=== PATIENT | female | born 1985 | race Caucasian/White ===

== ENCOUNTER 2020-05-18 06:10 | Inpatient (IN) | payer OTHER ==
[~2020-05-18] VITALS: Ht 154.9 cm; Wt 250.0 kg
[~2020-05-18 06:10] MED LIST: AVALIDE 150/12.1 TAB PO; AVALIDE 300-121 EACH PO; DOSTINEX PO; HYDRALAZINE HCL25 MG PO; NABUMETONE500 MG PO; NORVASC5 MG PO; PERCOCET 5/3251 TAB PO; ULTRACET PO
== END 2020-05-20 14:19 | disposition home or self-care (01) | DRG 741 ==
LOC: CIR.AMB 06:10 → OB/GYN 17:45
PROVIDERS: ADMIT Specialist; ATTEND Specialist
PROC: 07BC4ZX Excision of Pelvis Lymphatic, Percutaneous Endoscopic Approach, Diagnostic (ICD-10-PCS; 2020-05-18)
PROC: 0UB74ZZ Excision of Bilateral Fallopian Tubes, Percutaneous Endoscopic Approach (ICD-10-PCS; 2020-05-18)
PROC: 0UT94ZZ Resection of Uterus, Percutaneous Endoscopic Approach (ICD-10-PCS; principal; 2020-05-18 10:30)
DX: C54.1 Malignant neoplasm of endometrium (principal); N83.8 Other noninflammatory disorders of ovary, fallopian tube and broad ligament; R59.9 Enlarged lymph nodes, unspecified; I10 Essential (primary) hypertension